=== PATIENT | male | born 1965 | race Two or more races ===

== ENCOUNTER 2016-06-07 21:56 | Observation (INO) | payer OTHER ==
[~2016-06-07] VITALS: Ht 167.6 cm; Wt 103.0 kg
--- NOTE | 2016-06-07 22:40 | PHYS DOC ---
General Stated Complaint: BAD HEADACHE,BLOOD PRESSURE Time Seen by MD: 22:20 Source: patient, other Problems: History of Present Illness Initial Comments Patient here with corrections officers for headache and left upper extremity numbness. Patient states his headache started about 4:00 today. Slow-K the frontal scalp and radiates across to the back of the head. He says he never really had headaches like this before. There is no history of injury or trauma to the head. He says several hours ago he than began of some left upper extremity weakness. He barely went to the senior living clinic and was reportedly had an elevated blood pressure. He received 2 tablets what I believe to be clonidine which really did not change his pressure, and he was sent here to the ER for further evaluation. At this time, he says his headache and his left upper extremity numbness or improved. He has no complaints of weakness in the left upper extremity at any time. There's been no vision or speech changes with this. He's had no fever chills URI symptoms or cough. There's been no chest pain or shortness of breath. He's had some slight nausea but no vomiting. There is no abdominal pain. There is no change in bowel or bladder habits. He denies any other acute focal extremity or neurologic complaints except for the left upper extremity weakness as described. Patient states she's had discussed Lasix of symptoms once previously. He says it seemed to go away after he got some additional blood pressure medicine. He notes no other increasing or decreasing factors and there's been nothing else done for this prior to arrival in the ED. Patient's past medical history according him is remarkable for low back spinal fusion surgery. He also has says he has a pinched nerve in the left side of his neck. He is a rare smoker and nonuser of ethanol. He's been in custody for the last 4 months. Allergies: Coded Allergies: No Known Drug Allergies (Unverified , 06/07/16) Past Medical History Medical History: other Surgical History: other Social History Smoker: other Alcohol: none Review of Systems All Other Systems: Reviewed and Negative Physical Exam General Appearance: WD/WN, no apparent distress Eyes: bilateral eye EOMI, bilateral eye PERRL, bilateral eye normal inspection Ear, Nose, Throat: normal ENT inspection, normal pharynx Neck: full range of motion, supple, normal inspection Respiratory: lungs clear, normal breath sounds, no respiratory distress Cardiovascular: regular rate, rhythm, no edema Gastrointestinal: non tender, soft, no organomegaly Back: no CVA tenderness, no vertebral tenderness Extremities: non-tender, normal inspection, no pedal edema Neurologic/Psychiatric: 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 Vitals are as noted. Pertinent findings on physical exam shows the head to be atraumatic normocephalic. Scalp is fully nontender. Pupils are equal reactive light accommodation. Extraocular movements are intact. Ears and throat are clear. Neck is supple without adenopathy or JVD. There's no meningeal signs. Chest is clear and cardiovascular exams unremarkable. The abdomen is soft and nontender without masses or megaly. There is no perineal findings. Back shows no CVA tenderness. Actually show no rashes, cyanosis, or edema. Neurologic exam finds patient awake, alert, oriented 4. Cranial nerves II through XII grossly intact. Strength 5 over 5 equal all sites tested. There are no gross sensory deficits. He is initially not ambulated in the ED due to corrections restraints. Remainder of physical exam is clinically unremarkable. Orders, Labs, Meds Old charts note no prior ER visits within the current system. Patient did present with information from the corrections clinic. It appears that he presented complaining of headache nausea and left arm weakness. He initially had a blood pressure 160/105. He received 2 doses of clonidine which not decrease his blood pressure. His vitals were otherwise stable and he was sent to the ER. EKG obtained at that facility shows what appears to be a sinus rhythm at 70 with some mild left axis deviation, very early right bundle branch block, no acute ST or T-wave changes. At time of initial physician evaluation, the patient states his headache and his left upper extremity numbness is resolving. He has no objective signs of focal neurologic deficit, and a stroke scale was estimated to be 0. There appears to be no indication for thrombolytic or invasive therapy at this time, and his stroke alert status is downgraded accordingly. EKG shows sinus at 70. Left axis deviation. Early right bundle branch block. No acute ST or T-wave changes. Labs today are clinically unremarkable. Chest x-ray shows no acute changes per the emergency physician. CT scan ahead shows no acute changes per radiology. 0010 Patient resting comfortably in the ER. He says his left upper extremity weakness persists, but his headache comes and goes. He appears to be in no acute discomfort distress and is no distinct objective neurologic findings at this time. Discussed with the patient the uncertain cause of his symptoms. This may be related to his patient nerve in his left neck over the focal nature of his symptoms, but I do think is worthwhile to consider the possibility of TIA. I suggested admission is the preferred course of action. He is agreeable to same. I discussed the case with Dr. De Paz of the hospitalist service to facilitate admission. He graciously agrees to accept the patient. I written initial holding orders to include aspirin therapy, with morning echocardiogram and carotid ultrasound as well. Corrections officers have been notified as well. Patient is resting comfortably at this time awaiting transfer to the floor and hospitalist care. KASSY CABALLERO MD Jun 07, 2016 22:40
--- NOTE | 2016-06-07 23:10 | RAD ---
PROCEDURE CT head without contrast. HISTORY Left arm numbness and weakness. Elevated blood pressure. TECHNIQUE Helical CT imaging of the brain is performed without IV contrast. PQRS: One or more the following individualized dose reduction techniques were utilized for the study: 1. Automated exposure control. 2. Adjustment of the mA and/or kV according to patient size. 3. Use of iterative reconstruction technique. COMPARISON None. FINDINGS There is no midline shift or mass effect. No extra-axial fluid collection or intraparenchymal hemorrhage. Virgen-white matter differentiation is preserved. Ventricles and sulci are normal for patient age. The visualized paranasal sinuses and mastoid air cells are clear. The globes and orbits appear intact. No acute calvarial abnormality. IMPRESSION No acute intracranial abnormality. Electronically signed by: Chito Johnson MD (Jun 07, 2016 23:09:08)
--- NOTE | 2016-06-07 23:15 | EKG ---
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
[2016-06-07 23:17] LABS: BASO % 1 % (0-3); EOS # 0.1 x10^3/uL (0.0-0.7); EOS % 1 % (0-3); HEMATOCRIT 44.3 % (39.0-53.0); HEMOGLOBIN 15.3 g/dL (13.0-17.5); LYMPH % 14 % (24-48); MEAN CORPUSCULAR HEMOGLOBIN 30 pg (25-35); MEAN CORPUSCULAR HGB CONC 35 g/dL (31-37); MEAN CORPUSCULAR VOLUME 87 fL (79-100); MONO # 0.4 x10^3/uL (0.0-1.1); MONO % 5 % (0-9); NEUT % 80 % (31-73); PLATELET COUNT 143 x10^3/uL (140-400); WHITE BLOOD COUNT 7.5 x10^3/uL (4.0-11.0)
[2016-06-07 23:39] LABS: ALBUMIN/GLOBULIN RATIO 1.1 (1.0-1.7); CALCIUM 8.8 mg/dL (8.5-10.1); CREATININE 0.8 mg/dL (0.7-1.3); GFR 102.3; TOTAL BILIRUBIN 0.4 mg/dL (0.2-1.0); TOTAL PROTEIN 7.8 g/dL (6.4-8.2)
[2016-06-08] VITALS (13 sets, daily range): BP systolic 109–132; BP diastolic 67–93
[2016-06-08 00:31] LABS: CLARITY,URINE CLEAR
[2016-06-08 00:32] LABS: BACTERIA,URINE 0 /HPF (0-FEW); BILIRUBIN,URINE NEG (NEG); COLOR,URINE COLORLESS; GLUCOSE,URINE NEG (NEG); NITRITE,URINE NEG (NEG); SQUAMOUS EPITHELIAL CELL,UR OCC /LPF; UROBILINOGEN,URINE 0.2 mg/dL (0.2 mg/dL); WBC,URINE 0 /HPF (0-4)
--- NOTE | 2016-06-08 02:08 | ACF ---
Admission Criteria Forms TRANSIENT ISCHEMIC ATTACK (TIA) Clinical Indications for Admission to Inpatient Care (Place 'X' for any and all applicable criteria): Admission is indicated for ANY ONE of the following(1)(2)(3)(4)(5): [ ]I. Immediate inpatient procedure is needed (eg, endarterectomy). [X]II. Inpatient admission required rather than observation care (Also use Transient Ischemic Attack (TIA): Observation Care Criteria as appropriate) because of ANY ONE of the following: [X]a) Focal neurologic signs or symptoms persist or recurring [ ]b) Cardiac arrhythmias of immediate concern [ ]c) Clinically significant cardiac disorder identified that requires inpatient care (eg, severe valvular disease, atrial myxoma, cardiomyopathy) [ ]d) Hypertension requiring inpatient treatment [ ]e) Parenteral anticoagulation required (eg, alternative forms of anticoagulation not appropriate or not feasible) as indicated by ALL of the following(13): [ ]i) Temporary subtherapeutic anticoagulation unacceptable because of high risk of short-term venous or arterial thromboembolism due to ANY ONE of the following(14)(15)(16): [ ]1) Atrial fibrillation suspected as etiology of TIA(17)(18)(19)(20)(21) [ ]2) Venous thromboembolism within past 12 months [ ]3) Underlying malignancy [ ]4) Patient with mechanical cardiac valve(22)( 23) [ ]5) Underlying hypercoagulable state (eg, protein C or protein S deficiency antithrombin deficiency, antiphospholipid antibodies) [ ]6) Patient at temporary high risk of thromboembolism (eg, status post orthopedic surgery) [ ]ii) Contraindications to outpatient use of "bridging" agent or alternative oral anticoagulant[B] as indicated by ALL of the following: [ ]1) Contraindication to outpatient use of low- molecular-weight heparin as "bridging" agent as indicated by ANY ONE of the following(15): [ ]A. Documented current or history of heparin-induced thrombocytopenia(24) [ ]B. Severe thrombocytopenia (eg, platelet count less than 50,000/mm3 (70n255/L) [ ]C. Documented allergy to heparin, low- molecular-weight heparin, or pork products [ ]D. Renal failure (creatinine clearance less than 30 mL/min/1.73m2 (0.50mL/sec/1.73m2) or on dialysis) [ ]E. Inability to manage self-injection ( eg, by patient, caregiver, or visiting nurse) [ ]2) Contraindication to outpatient use of fondaparinux as "bridging" agent as indicated by ANY ONE of the following(25)(26 )(27)(28): [ ]A. Severe thrombocytopenia (eg, platelet count less than 50,000/mm3 (50 x109/L)) [ ]B.Hypersensitivity to fondaparinux, related drugs, or product components [ ]C.Renal failure (creatinine clearance less than 30 mL/min/1.73m2 (0.50mL/sec/1.73m2) or on dialysis) [ ]D.Inability to manage self-injection ( eg, by patient, caregiver, or visiting nurse [ ]3. Oral direct thrombin inhibitor (eg, dabigatran) or oral coagulation factor Xa inhibitor (eg, rivaroxaban, apixaban) not appropriate as oral anticoagulation (eg, indication not appropriate) or contraindicated (eg, hypersensitivity, creatinine clearance less than 15 mL/min/1.73m2 ( 0.25 mL/sec/1.73m2) or on dialysis). [ ]f) Continuous IV infusion of anticoagulant, platelet inhibitor, vasoactive or antiarrhythmia(18)(19) [ ]g) Other condition, treatment, or monitoring requiring inpatient admission [ ]III. Contraindications and/or Inappropriate clinical situations for Observational Care in patients with Transient Ischemic Attack (TIA), when ANY ONE of the following is required: [ ]a) Patient with persistent or severe neurological deficit 24 [ ]b) Patient with acute CVA or other identified pathology should be admitted to inpatient for further care 25 [ ]IV. General contraindications and/or Inappropriate clinical situations for Observational Care in patients with Transient Ischemic Attack (TIA), when ANY ONE of the following is required: [ ]a) Prediction of prolongation of LOS based on ANY ONE of the following may be considered as a contraindication for observational care 2, 3, 4, 5, 6, 7, 8, 9, 10, 11 [ ]i) Age > 65 yrs. [ ]ii) Patient arriving by ambulance [ ]iii) Patient with high acuity [ ]iv) Patient requiring vital sign monitoring [ ]v) Patient on IV medication [ ]b) Systolic blood pressures 180mmHg 3,12 [ ]c) Patient with altered mental status including delirium and other alteration of consciousness, (3) [ ]d) Patient whose discharge disposition will be to a retirement home or rehabilitation home should not be managed in Emergency Department Observation Unit. CMS rule requires 3 days hospital stay before such placement.3,13 [ ]e) Patient with failure to thrive due to broad array of etiologies 3,16,17 [ ]f) Inability to ambulate 3,14 Extended stay beyond goal length of stay may be needed for(4)(30)(32): [ ]a) Parenteral anticoagulation required [ ]b) Dangerous arrhythmia [ ]c) Cardiac valvular disorder, atrial myxoma, cardiomyopathy [ ]d) Uncontrolled severe hypertension [ ]e) Severe carotid stenosis [ ]f) Active comorbidities (eg, heart failure) [ ]g) Extracranial vertebrobasilar disease(29) [ ]h) Clinical evolution of TIA into cerebrovascular accident (stroke) The original [facility] content created by [employer] has been revised. The portions of thecontent which have been revised are identified through the use of italic text or in bold, and [facility] has neither reviewed nor approved the modified material. All other unmodified content is copyright [facility]. Please see references footnoted in the original [facility] edition 2016 Admission Criteria Met?: Yes KIRBY FLORES Jun 08, 2016 02:08
[2016-06-08] MEDS: ACETAMINOPHEN 325 MG TABLET PO PRN ×3 (02:16→14:24)
[2016-06-08] MEDS ORDERED: ASPIRIN 325 MG TABLET PO ONE (02:30)
--- NOTE | 2016-06-08 07:45 | RAD ---
AP portable chest radiograph 06/07/2016 Clinical History: Left arm numbness, weakness and hypertension. An AP portable erect digital radiograph of the chest was obtained. No previous studies are available for comparison. The cardiac silhouette is borderline enlarged. There is left ventricular prominence. The thoracic aorta is minimally tortuous. No acute pulmonary infiltrate is seen. No pleural effusion or pneumothorax is noted. Degenerative changes are seen involving the thoracic spine and both shoulders. Impression: No acute abnormality is seen.
[2016-06-08] MEDS ORDERED: ASPIRIN 325 MG TABLET PO SCH (08:00)
--- NOTE | 2016-06-08 08:46 | RAD ---
Bilateral carotid arterial duplex study 06/08/2016 Clinical History: Headache with left-sided weakness and tingling. Technique: Using a combination of real-time ultrasound imaging and color-flow and pulse Doppler imaging techniques, duplex evaluation of the carotid and vertebral arterial structures within the neck was performed. Multiple images were obtained. Findings: Minimal atheromatous/atherosclerotic plaque formation is seen involving both carotid bifurcations. The peak systolic velocities are not significantly elevated. No hemodynamically significant stenosis is seen. The vertebral arteries demonstrate normal antegrade flow. Impression: Minimal atheromatous/atherosclerotic plaque formation is seen involving both carotid bifurcations. No hemodynamically significant stenosis is seen. Please note that stenosis calculations for carotid ultrasound studies are derived from validated velocity criteria which are known to correlate with the NASCET methodology.
[2016-06-08] MEDS ORDERED: MELO-156 PO (09:09)
[2016-06-08] MEDS ORDERED: OXCA300T PO (09:10)
--- NOTE | 2016-06-08 11:41 | CARD ---
APPROVED REPORT EXAM: Two-dimensional and M-mode echocardiogram with Doppler and color Doppler. Other Information Quality : Average Rhythm : NSR INDICATION Hypertension/HCVD Headache 2D DIMENSIONS RVDd2.4 (2.9-3.5cm)Left Atrium(2D)3.2 (1.6-4.0cm) IVSd1.2 (0.7-1.1cm)Aortic Root(2D)2.9 (2.0-3.7cm) LVDd4.8 (3.9-5.9cm)LVOT Diameter2.1 (1.8-2.4cm) PWd1.2 (0.7-1.1cm)LVDs3.3 (2.5-4.0cm) FS (%) 31.8 %SV63.0 ml LVEF(%)59.7 (>50%) Aortic Valve AoV Peak Lauri.107.4cm/sAoV VTI24.7cm AO Peak GR.4.6mmHgLVOT Peak Lauri.83.6cm/s AO Mean GR.3mmHgAVA (VMAX)2.63cm2 Mitral Valve MV E Btdewkro17.3cm/sMV DECEL MFOZ613sa MV A Yroytmlf23.7cm/sE/A Ratio0.8 MV A Ambxtoax824vr Tricuspid Valve TR P. Svmjitmc622ee/sRAP NANJAZKV5taDb TR Peak Gr.84bpNdBVOO79esXa LEFT VENTRICLE The left ventricle is normal size. There is normal left ventricular wall thickness. Left ventricle sy stolic function is normal. The Ejection Fraction is 55-60%. There is normal LV segmental wall motion. The left ventricular diastolic function and filling is normal for age. There is no ventricular septa l defect visualized. RIGHT VENTRICLE The right ventricle is normal size. The right ventricular systolic function is normal. ATRIA The left atrium size is normal. The right atrium size is normal. The interatrial septum is intact wit h no evidence for an atrial septal defect or patent foramen ovale as noted on 2-D or Doppler imaging. AORTIC VALVE The aortic valve is normal in structure and function. The aortic valve is trileaflet. Doppler and Col or Flow revealed no significant aortic regurgitation. There is no significant aortic valvular stenosi s. MITRAL VALVE The mitral valve is normal in structure and function. There is no mitral valve stenosis. Doppler and Color Flow revealed no mitral valve regurgitation noted. TRICUSPID VALVE The tricuspid valve is not well visualized. Doppler and Color Flow revealed trace tricuspid regurgita tion. The PA pressure was estimated at 25 mmHg. There is no tricuspid valve stenosis. PULMONIC VALVE The pulmonic valve is not well visualized. Doppler and Color Flow revealed no pulmonic valvular regur gitation. There is no pulmonic valvular stenosis. GREAT VESSELS The aortic root is normal in size. Pulmonary veins not well visualized. The IVC was not visualized. PERICARDIAL EFFUSION There is no evidence of significant pericardial effusion. Critical Notification Critical Value: No <Conclusion> The left ventricle is normal size. Left ventricle systolic function is normal. The Ejection Fraction is 55-60%. There is no significant aortic valvular stenosis. Doppler and Color Flow revealed no significant aortic regurgitation. Doppler and Color Flow revealed no mitral valve regurgitation noted. Doppler and Color Flow revealed trace tricuspid regurgitation. The PA pressure was estimated at 25 mmHg.
--- NOTE | 2016-06-08 12:22 | EKG ---
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
--- NOTE | 2016-06-08 16:05 | SSS ---
ADMIT DATE: 06/08/2016 HISTORY OF PRESENT ILLNESS: The patient is a 51-year-old male patient who was brought from the correctional facility with a complaint of left upper extremity numbness and headache. Apparently, headache started around 4 o'clock involving mainly the frontal scalp radiating across back to the head. He has never had any headache before. He was evaluated in their clinic and was found to markedly hypertensive. Apparently, he was given 2 tablets probably clonidine, which did not really changed his blood pressure and was brought to the Emergency Room for further evaluation. By the time he arrived to the Emergency Room, the headache has started subsiding with his left upper extremity numbness continued, although he denied any actual weakness. Denied any blurring of vision and dysarthria. He was evaluated in the Emergency Room and has had CT scan of the head, which was basically showed there is no midline shift or mass effect. No extraaxial fluid collection or intraparenchymal hemorrhage. Virgen white matter differentiation is preserved. The ventricles and sulci are normal for the patient's age. The visualized paranasal sinuses and mastoid air cells are clear. The globes and orbits appeared normal. No acute calvarial abnormality. The patient was admitted for further evaluation and to consult Dr. Sagastume. PAST MEDICAL HISTORY: Unremarkable. PAST SURGICAL HISTORY: Significant for lumbar spinal stenosis status post back surgery. ALLERGIES: He has no known drug allergies. MEDICATIONS: He is currently on meloxicam 7.5 mg twice a day and oxcarbazepine 300 mg twice a day. FAMILY HISTORY: Unremarkable. SOCIAL HISTORY: He is currently incarcerated. He does not smoke, drink alcohol, or use recreational drugs. REVIEW OF SYSTEMS: As per history of present illness. PHYSICAL EXAMINATION GENERAL: When I examined him, he looked well and was clearly in no apparent respiratory distress. No pallor, jaundice, cyanosis, or thyromegaly. No jugular venous distention. No limb edema. VITAL SIGNS: His heart rate was 63, blood pressure was 111/74, temperature was 98.2, respiratory rate was 20, and oxygen saturation was 96%. HEENT: Showed normocephalic and atraumatic. NECK: Supple. HEART: Showed normal first and second heart sounds with no gallop, rub, or murmur. CHEST: Clear to auscultation. No crepitation or rhonchi. ABDOMEN: Distended, soft, and nontender. No guarding or rigidity. No organomegaly. Hernial orifices intact. Bowel sounds normal. NEUROLOGIC: He is awake, alert, and responding appropriately. Cranial nerves intact. He moves extremities without difficulty. He ambulates without assistance or assistive devices. LABORATORY DATA: While in the Emergency Room, he was extensively investigated. His serum sodium was 134, potassium 4, chloride 100, bicarbonate 28, anion gap of 6, BUN 9, creatinine 0.8, and estimated GFR was 102 mL per minute. His glucose was 125 and calcium was 8.8. Total bilirubin, AST, ALT, and alkaline phosphatase were normal. His total protein was 7.8 and albumin 4. His white cell count was 7500, hemoglobin 15.3, hematocrit ____, MCV 87, and platelet count of 143,000 with normal manual differential. His prothrombin time was 9.5 and INR 3.9. Urinalysis was essentially unremarkable. DIAGNOSTIC DATA: His CT scan of the head was unremarkable and showed no acute intracranial abnormalities. His chest x-ray also showed that the cardiac silhouette is borderline ____ left ventricular prominence. Thoracic aorta is minimally tortuous. No acute pulmonary infiltrate. No pleural effusion or pneumothorax is noted. Degenerative changes are seen involving the thoracic spine and both shoulders. Carotid Doppler ultrasound showed that this are minimal atheromatous atherosclerotic plaque formation is seen involving both carotid bifurcations. Hemodynamically significant stenosis is seen. He had even an echocardiogram, which basically showed that his left ventricular size is normal with normal left ventricular systolic function with ejection fraction 55-60%. No significant aortic valvular stenosis or regurgitation. No mitral valve regurgitation noted. His pulmonary artery pressure was estimated at 25 mmHg. ASSESSMENT AND PLAN: He was seen also by Dr. Sagastume and he remained stable. He has no more tingling and numbness. The headache has subsided. The patient was discharged back to the correction facility to continue on his meloxicam and oxcarbazepine. FINAL DISCHARGE DIAGNOSES: Headache and left upper extremity tingling and numbness both has subsided. LETI BAUER MD DR: DEBBIE/ned JOB#: [id number] / [id number]
== END 2016-06-08 16:10 | disposition home or self-care (01) ==
LOC: ER 21:56 → ICU 06-08 00:30 → EEVIPCON 06-08 00:30
PROVIDERS: ADMIT Internal Medicine; ATTEND Internal Medicine
DX: R51 Headache (principal); R20.0 Anesthesia of skin; R20.2 Paresthesia of skin; I10 Essential (primary) hypertension
CPT/HCPCS: 36415; 70450; 71010; 80053; 81001; 82553; 83880; 84484; 85027; 85610; 87641; 93005; 93306; 93880; 99285; G0378; G0379